=== PATIENT | male | born 1970 | race Caucasian/White ===

== ENCOUNTER 2020-02-09 01:12 | Emergency (ER) | payer BC, SELFPAY ==
[2020-02-09] VITALS (15 sets, daily range): BP systolic 132–211; BP diastolic 71–115; PULSE 97–113; RESP 16–21; TEMP 36.4; O2SAT 93–98; BMI 33.1
--- NOTE | 2020-02-09 01:32 | EKG12_ITS ---
Test Reason : ABD. PAIN Blood Pressure : / mmHG Vent. Rate : 108 BPM Atrial Rate : 108 BPM P-R Int : 154 ms QRS Dur : 096 ms QT Int : 330 ms P-R-T Axes : 039 -01 047 degrees QTc Int : 442 ms Sinus tachycardia Otherwise normal ECG Confirmed by ALINA FERNANDES, KIMBERLY ([id number]), managing editor JUAN A ALEJANDRO ([id number]) on 02/10/2020 11:06:20 AM Referred By: BB Confirmed By:KIMBERLY FULLER MD
--- NOTE | 2020-02-09 01:43 | ED.RN ---
NO OLD EKGS IN MUSE
--- NOTE | 2020-02-09 01:46 | ED.DCSUM_ITS ---
History of Present Illness Chief Complaint: Abd Pain Informant: Patient Onset: Hours - 6 Context: Sudden Onset - Resting, doing nothing in particular Timing: Continuous Quality: Pain Location: Epigastrium/lower mid chest, with radiation to the mid back Current Severity: Severe Maximum Severity: Severe Worsened by: Mildly worse with breathing Relieved by: Nothing Associated Symptoms: Mild nausea Narrative: Patient presenting with pain that he states started with what felt like a pop. He points to his lower mid chest/epigastrium. Opposite this area in his back, it radiates, and it seems to shoot down into his low back, nonlateralizing. Mildly pleuritic in nature. No dyspnea, cough, fevers or chills. No recent leg pain or swelling. No history of DVT or PE. Takes no medications and has no known medical problems. No prior abdominal surgeries. He last ate 5 or 6 hours prior to this starting, and just had a candy bar at that time. Pain is mildly colicky in nature. Past Medical History - Allergies and Home Meds Allergies/Adverse Reactions: Allergies No Known Allergies Allergy (Verified 02/09/20 01:16) Primary Care Physician: NOT,DEFINED [NON-STAFF] - Past Medical History: None Surgical History: no surgical history Smoking Status: Former smoker Drugs: None Review of Systems General: Denies: Chills, Fever, Sweats Eyes: Denies: Visual changes - bilaterally, Diplopia ENT: Denies: Rhinorrhea, Sore throat Cardiovascular: Reports: Chest pain. Denies: Palpitations Respiratory: Denies: Dyspnea, Cough, Dyspnea on exertion Gastrointestinal: Reports: Abdominal pain, Nausea. Denies: Vomiting, Diarrhea, Melena, Hematochezia Genitourinary: Denies: Dysuria, Hematuria, Frequency Musculoskeletal: Reports: Back pain. Denies: Myalgias, Neck pain, Swelling, Extremity Pain Skin: Denies: Rash, Wounds Neurological: Denies: Headache, Weakness, Numbness Physical Exam Vital Signs/Narrative: Vital Signs Temp Pulse Resp BP Pulse Ox 02/09/20 01:13 97.6 F L 107 H 18 198/101 H 98 Inital Vital Signs reviewed: Yes General: Well nourished, Well developed, No Acute Distress - well-appearing Head: Normocephalic, Atraumatic Eyes: Perrl, EOMI ENT: Moist mucous membranes, No rhinorrhea Neck: Supple, Nontender Cardiovascular: Regular rate, Regular rhythm, No murmurs, Normal S1, Normal S2, Tachycardia - mild Respiratory: No distress, CTA bilaterally, Chest nontender Abdomen: Soft, Nontender, Nondistended, Normal bowel sounds, No masses, - - nml inspection. no kike sign. Negative for: Pulsatile mass Back: Nontender, Normal Inspection - w/o rash, lesions, castillo campos sign. Negative for: CVA tenderness Extremities: Nontender, No edema. Negative for: Calf Tenderness Skin: Normal color, No rash, No Trauma Neurological: Alert, Oriented x3, Cranial nerves II-XII grossly intact, Normal Strength, Normal Sensation, Normal Gait Psychological: Normal affect, Normal Mood Diagnostic/Tx/Re-eval Impressions Chest X-Ray 02/09/20 01:50 IMPRESSION: Left suprahilar nodular density, either representing parenchymal nodule versus prominent first costochondral junction. Electronically Signed: Enio Huizar MD at 2:06 EST Tel , Service support , 02/09/20 01:50 Chest 1 View (Portable) [RAD] Stat 02/09/20 02:09 CTA Abdomen W/WO Contrast [CT] Stat CTA Chest W/WO Contrast [CT] Stat Laboratory Results 02/09/20 02/09/20 02/09/20 01:45 01:45 01:45 WBC 15.5 H RBC 4.89 Hgb 15.0 Hct 44.3 MCV 90.6 MCH 30.7 MCHC 33.9 RDW Std Deviation 39.2 RDW Coeff of Familia 11.9 Plt Count 239 MPV 10.2 Immature Gran % (Auto) 0.500 Neut % (Auto) 90.0 H Lymph % (Auto) 5.0 L Letcher % (Auto) 4.2 Eos % (Auto) 0.1 Baso % (Auto) 0.2 Absolute Neuts (auto) 13.9 H Absolute Lymphs (auto) 0.78 L Nucleated RBC % 0 Differential Comment SCANNED Sodium 135 L Potassium 4.0 Chloride 102 Carbon Dioxide 25.0 Anion Gap 8 BUN 17 Creatinine 1.59 H Estim Creat Clear Calc 62.36 Est GFR (MDRD) Af Amer 60 Est GFR (MDRD) Non-Af 49 L BUN/Creatinine Ratio 10.7 Glucose 162 H Calcium 9.4 Total Bilirubin 0.60 AST 19 ALT 33 Alkaline Phosphatase 57 Troponin I < 0.015 Total Protein 8.3 H Albumin 4.0 Globulin 4.3 H Albumin/Globulin Ratio 0.9 Lipase 81 Urine Color Yellow Urine Clarity Clear Urine pH 6.5 Ur Specific [place] 1.015 Urine Protein 100 H Urine Glucose (UA) 100 H Urine Ketones Negative Urine Occult Blood 25 H Urine Nitrite Negative Urine Bilirubin Negative Urine Urobilinogen Normal Ur Leukocyte Esterase Negative Urine RBC 0-5 SEEN Urine WBC 0 SEEN Ur Squamous Epith Cells 0 SEEN Ur Transition Epith Cell 0-5 SEEN Amorphous Sediment 1+ Urine Bacteria 0 SEEN Urine Mucus 0 SEEN - Rhythm Strip Rhythm Strip: Sinus Tach Rate: 108 Ectopy: None - EKG Initial EKG Interpretation: No Acute Injury Pattern, Sinus Tachycardia - Medical Decision Making Screening stat portable chest x-ray and EKG were quickly obtained, x-ray shows no evidence of pneumothorax or pneumomediastinum, so he was then quickly sent for CT angiography of the aorta, chest/abdomen/pelvis after receiving labetalol 10 mg IV. On my review prior to results being obtained, it shows a Type B aortic dissection that appears acute, starting at the takeoff of the left subclavian artery and progressing all the way down to the bifurcation of the common iliacs. He has 2+/4 symmetric pulses in both radials and dorsalis pedis bilaterally. He is clinically stable. He was given morphine which helped his pain. He was given another dose of labetalol IV followed by night pride drip, patient preferred to go to [facility], as he will need transfer to a higher level of care for this problem. [facility] contacted for transport. Accepted by Dr. Hernandez w/ vascular surgery. - Critical Care Time Critical care time (excluding procedures): 30-74 minutes - 40 min, Including time spent:, Discussing w/Patient &/or Family/Quality Tester, Discussing w/Consultants, Arranging Admission or Transfer, Performing Direct Patient Care at Bedside ED Disposition - Plan for ED Patient: Disposition: [facility] Diagnosis: Acute thoracic aortic dissection Referrals: NOT,DEFINED [NON-STAFF] -
[2020-02-09] MEDS: 0.9% Normal Saline 1,000 ML 1000 ML IV (01:47)
[2020-02-09] MEDS: Ondansetron 4 MG/2 ML Vial IV (01:47)
[2020-02-09] MEDS: Morphine 4 MG/ML Syringe IV ×2 (01:47→03:33)
--- NOTE | 2020-02-09 01:50 | RAD_ITS ---
STUDY: X-RAY CHEST REASON FOR EXAM: Male, 49 years old. Chest pain, radiating to back TECHNIQUE: Single AP portable view of the chest. COMPARISON: None. FINDINGS: Nodular opacity within the left suprahilar region. No confluent airspace infiltrate. No pleural effusion or pneumothorax. Borderline cardiomegaly. Normal mediastinum and naye. Normal visualized pulmonary arteries. Normal visualized aortic arch and descending thoracic aorta. There are diffuse degenerative changes of the visualized thoracic spine. Normal visualized ribs, clavicles, and shoulders. There is no demonstrated abnormality of the visualized soft tissue structures of the upper abdomen. RAD/Chest 1 View (Portable) IMPRESSION: Left suprahilar nodular density, either representing parenchymal nodule versus prominent first costochondral junction. Electronically Signed: Enio Huizar MD at 2:06 EST Tel , Service support ,
[2020-02-09 01:53] LABS: Absolute Lymphocyte Count 0.78 X10^3/uL (0.83-4.51); Absolute Neutrophil Count 13.9 X10^3/uL (2.0-7.7); Bacteria 0 SEEN /hpf (None Seen); Basophil# 0.03 X10^3/uL; Basophil% 0.2 % (0-1); Eosinophil# 0.02 X10^3/uL; Eosinophils% 0.1 % (0-5); Hematocrit 44.3 % (40-54); Lymphocyte # 0.78 X10^3/ul (4.0); Mean Corp Hgb Conc 33.9 g/dL (32-36); Mean Corpuscular Hgb 30.7 pg (27.0-32.0); Mean Corpuscular Volume 90.6 fL (80-94); Mean Platelet Vol. 10.2 fl (6.2-12.0); Monocyte# 0.65 X10^3/uL; Monocyte% 4.2 % (0-10); Mucous, Urine 0 SEEN /hpf (<or=2+); NRBC Flagged by Analyzer 0 % (0-5); Neutrophil # 13.93 X10^3/uL (2.7-7.7); POSITIVE MORPHOLOGY YES; Platelet Count 239 K/mm3 (150-450); RBC Distribution Width CV 11.9 % (11.6-14.6); RBC Distribution Width SD 39.2 fl (35.1-43.9); Red Blood Count 4.89 M/mm3 (4.6-6.2); Squamous Epithelial Cells - UA 0 SEEN /hpf (0-5); White Blood Cells 0 SEEN /hpf (0-5); White Blood Count 15.5 K/mm3 (4.4-11.0)
[2020-02-09 01:55] LABS: Color, Urine Yellow (Yellow); Glucose, Dipstick 100 mg/dl (Normal); Ketone-Dipstick Negative (Negative); Leukocyte Esterase-Dipstick Negative /ul (Negative); Nitrite-Dipstick Negative (Negative); Occult Blood-Urine 25 /ul (Negative); Protein-Dipstick 100 mg/dl (Negative); Specific Gravity, Urine 1.015 (1.002-1.030); Urine Bilirubin Dipstick Negative (Negative); Urine Clarity Clear (Clear); Urine Urobilinogen Normal (Normal); Urine pH 6.5 (5.0 - 8.0)
[2020-02-09 01:56] LABS: Differential Indicated SCAN CRITERIA MET
[2020-02-09 02:01] LABS: Amorphous Sediment 1+; Red Blood Cells-Urine 0-5 SEEN /hpf (0-5); Transitional Epithelial - Ur 0-5 SEEN /hpf (0-5)
--- NOTE | 2020-02-09 02:09 | CT_ITS ---
STUDY: CTA OF THE ABDOMINAL AORTA AND BILATERAL LOWER EXTREMITIES REASON FOR EXAM: Male, 49 years old. Acute onset chest pain with radiation dosage to the back. RADIATION DOSAGE (If Supplied By Facility): CTDIvol = ( 15.36 ) mGy, DLP = ( 1386.89 ) mGycm TECHNIQUE: Axial CT angiography multi-detector data acquisition was obtained from the to the following intravenous administration of IV 100mL Isovue-370. Axial images and MIP images were reconstructed from the axial data set. Post-processing of the angiographic images was performed, with multiplanar reformation and 3D reconstruction. Individualized dose optimization techniques were used for this CT. TECHNICAL QUALITY: Good COMPARISON: None. Descriptors of Narrowing: None (0%) Mild (< 50%) Moderate (50-70%) Severe (70-90%) Subtotal/Total Occlusion (90-100%) Non-Evaluable (technically non-diagnostic FINDINGS: Vascular Findings: Abdominal aorta: Descending thoracic aortic dissection. True lumen gives rise to the celiac trunk, SMA, right renal artery, inferior mesenteric artery, and right common iliac artery. False lumen gives rise to the left renal artery. There is mixed true lumen and false lumen supplies the left common iliac artery. Celiac and superior mesenteric arteries: Widely patent Inferior mesenteric artery: Widely patent Right renal artery(arteries): Widely patent Left renal artery(arteries): Mild proximal luminal narrowing Right common iliac artery: Widely patent Right external iliac artery: Widely patent Right internal iliac artery: Widely patent Left common iliac artery: Widely patent Left external iliac artery: Widely patent Left internal iliac artery: Widely patent Nonvascular Findings: Normal liver. Normal gallbladder. Normal biliary ducts. Normal spleen. Normal pancreas. Normal adrenal glands. Normal right kidney. Decreased attenuation of the left anterior kidney. Normal stomach. Normal small bowel normal appendix. Minimal diverticular disease of the sigmoid colon without localized inflammation. No free air or free no significant mesenteric or retroperitoneal lymphadenopathy. Normal visualized urinary bladder. CT/CTA Abdomen W/WO Contrast IMPRESSION: 1. Descending thoracic aortic dissection with no associated aneurysmal dilatation and with extension to the aortic bifurcation 2. False lumen supply to the left renal artery resulting in decreased enhancement to the left anterior kidney. 3. Minimal sigmoid colonic diverticulosis with no evidence of acute diverticulitis. Electronically Signed: Enio Huizar MD at 3:06 EST Tel , Service support ,
--- NOTE | 2020-02-09 02:09 | CT_ITS ---
We are attempting to reach an attending provider to discuss findings. An addendum with communication details will be sent when the communication is complete. STUDY: CTA CHEST REASON FOR EXAM: Male, 49 years old. Sudden onset chest pain with radiation to the back RADIATION DOSAGE (If Supplied By Facility): CTDIvol = ( 15.36 ) mGy, DLP = ( 1386.89 ) mGycm TECHNIQUE: The examination was performed with the intravenous administration of IV 100mL Isovue-370. Post-processing of the angiographic images was performed, with multiplanar reformation and 3D reconstruction. Individualized dose optimization techniques were used for this CT. COMPARISON: None. FINDINGS: No definitive intraluminal filling defect within the central pulmonary vasculature, though evaluation is limited due to timing of the contrast bolus. The lobar, segmental and subsegmental pulmonary arterial branches are not well opacified. There is a type B aortic dissection originating just distal to the left subclavian artery origin. There is no associated aneurysmal dilatation. There is no evidence of aortic rupture. Normal heart and pericardium. Normal mediastinum. Normal hilar regions. Normal visualized trachea and bronchi. The lungs are well expanded. No confluent airspace infiltrate. At least 2 noncalcified pulmonary nodules abutting the right minor fissure measuring up to 6 mm. 6 mm pleural-based nodule at the posterior lateral left lung base with additional smaller nodules seen in the superior segment left lower lobe. No pleural effusion or pneumothorax. Normal chest wall structures. Mild multilevel degenerative change of the spine. CT/CTA Chest W/WO Contrast IMPRESSION: 1. Acute type B aortic dissection with no associated aneurysmal formation or evidence of rupture 2. Indeterminant bilateral noncalcified pulmonary nodules measuring up to 6 mm. Electronically Signed: Enio Huizar MD at 3:00 EST Tel , Service support ,
[2020-02-09 02:14] LABS: ALB/GLOB Ratio 0.9 RATIO (0.9-2.4); AST(SGOT) 19 U/L (15-37); Alanine Aminotransfer ALT/SGPT 33 U/L (16-61); Alkaline Phosphatase 57 U/L (45-117); Anion Gap 8 (5-15); BUN 17 mg/dL (7-18); BUN/Creat Ratio 10.7 RATIO (10-20); Calcium,Total 9.4 mg/dL (8.5-10.1); Chloride 102 mmol/L (98-107); Creatinine, Serum 1.59 mg/dL (0.70-1.30); EST Glomerular Filtration Rate 49 mL/min (>60); Est Glom Filt Rate - Afr Amer 60 mL/min (>60); Estimated Creatinine Clearance 62.36 ml/min; Globulin 4.3 g/dL (2.2-4.2); Glucose 162 mg/dL (74-106); Lipase 81 U/L (73-393); Protein, Total 8.3 g/dL (6.4-8.2); Sodium Level 135 mmol/L (136-145)
[2020-02-09] MEDS: Labetalol 100 MG/20 ML Vial 10 MG IV ×2 (02:27→02:57)
[2020-02-09 02:30] LABS: Differential Comment SCANNED
== END 2020-02-09 04:01 | disposition short-term general hospital (02) ==
PROVIDERS: Emergency Provider Emergency Medicine
DX: I71.01 Dissection of thoracic aorta (principal); Z87.891 Personal history of nicotine dependence
CPT/HCPCS: 71045; 71275; 74175; 80053; 81001; 83690; 84484; 85025; 93005; 96361; 96365; 96375; 96376; 99285; J7030; Q9967; A4216; J2405

== ENCOUNTER → 2023-04-02 | Outpatient (CLI) | payer BC, SELFPAY ==
--- OUTSIDE RECORDS SUMMARY | 2023-04-02 11:31 | XMS RPT_ITS | CCD ---
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 1970 Unknown [id number] Summary Purpose Family History No Family History Records FoundNo Family History Records Found Advance Directives No Advanced Directives Records FoundNo Advanced Directives Records Found Additional Source Comments (unrecognized sect ion and content) No Status Records FoundNo Status Records Found INFORMATION SOURCE (unrecogn ized section and content) DATE CREATED AUTHOR AUTHOR'S ORGANIZ ATION 04/27/2021 [facility] FOR RECORDS PERTAINING TO PATIENTS WHO ARE OR HAVE BEEN ENROLLED IN A CHEMICAL DEPENDENCY/SUBSTANCEABUSE PROGRAM, SOME INFORMATION MAY BE OMITTED. This clinical summary was aggregated from multiple sources. Caution should be exercised in using it in the provision of clinical care. This summary normalizes information from multiple sources, and as a consequence, information in this document may materially change the coding, format and clinical context of patient data. In addition, data may be omitted in some cases. CLINICAL DECISIONS SHOULD BE BASED ON THE PRIMARY CLINICAL RECORDS. [facility]. provides no warranty or guarantee of the accuracy or completeness of information in this document.
[2023-04-02 12:37] LABS: Absolute Lymphocyte Count 1.58 X10^3/uL (0.83-4.51); Absolute Neutrophil Count 5.9 X10^3/uL (2.0-7.7); Basophil# 0.03 X10^3/uL; Basophil% 0.4 % (0-1); Eosinophil# 0.27 X10^3/uL; Eosinophils% 3.2 % (0-5); Hematocrit 41.2 % (40-54); Hemoglobin 13.7 g/dL (13.0-16.5); Lymphocyte # 1.58 X10^3/ul (0.83-4.51); Lymphocyte % 18.5 % (19-41); Mean Corp Hgb Conc 33.3 g/dL (32-36); Mean Corpuscular Hgb 30.4 pg (27.0-32.0); Mean Corpuscular Volume 91.4 fL (80-94); Mean Platelet Vol. 11.1 fl (6.2-12.0); Monocyte# 0.76 X10^3/uL; Monocyte% 8.9 % (0-10); NRBC Flagged by Analyzer 0 % (0-5); Neutrophil # 5.88 X10^3/uL (2.7-7.7); Neutrophil % 68.8 % (47-70); Platelet Count 296 K/mm3 (150-450); RBC Distribution Width SD 43.1 fl (35.1-43.9); Red Blood Count 4.51 M/mm3 (4.6-6.2); White Blood Count 8.5 K/mm3 (4.4-11.0)
[2023-04-02 12:45] LABS: Vitamin B12 718 pg/mL (211-911); Vitamin D,25 Hydroxy 51.3 ng/mL
[2023-04-02 12:47] LABS: ALB/GLOB Ratio 0.8 RATIO (0.9-2.4); AST(SGOT) 23 U/L (15-37); Alanine Aminotransfer ALT/SGPT 35 U/L (16-61); Albumin, Serum 3.5 g/dL (3.2-5.0); Alkaline Phosphatase 62 U/L (45-117); Anion Gap 6 (5-15); BUN 14 mg/dL (7-18); BUN/Creat Ratio 16.6 RATIO (10-20); Calcium,Total 8.6 mg/dL (8.5-10.1); Chloride 108 mmol/L (98-107); Cholesterol 146 mg/dL (200); Creatinine, Serum 0.84 mg/dL (0.70-1.30); EST Glomerular Filtration Rate 101 mL/min (>60); Est Glom Filt Rate - Afr Amer 123 mL/min (>60); Globulin 4.5 g/dL (2.2-4.2); Glucose 113 mg/dL (74-106); High Density Lipoprotein 49 mg/dL; PSA,Total - Annual Screen 2.63 ng/mL (0.00-4.00); Potassium 4.2 mmol/L (3.5-5.1); Sodium Level 139 mmol/L (136-145); Triglycerides 99 mg/dL; Very Low Density Lipoprotein 20 mg/dL (5-40)
[2023-04-02 12:49] LABS: Hemoglobin A1c 5.2 % (3.8-5.6)
== END | disposition home or self-care (01) ==
PROVIDERS: PCP Family Medicine; Visit Provider Family Medicine
DX: Z00.00 Encounter for general adult medical examination without abnormal findings (principal)
CPT/HCPCS: 36415; 80053; 80061; 82306; 82607; 83036; 84153; 85025; G0103